=== PATIENT | male | born 1955 | race Caucasian/White ===

== ENCOUNTER 2019-10-03 12:57 | Inpatient (IN) | payer MEDICAID ==
[~2019-10-03] VITALS: Ht 175.3 cm; Wt 107.2 kg
[2019-10-03 14:18] LABS: BG BASE EXCESS 1.5 mmol/L (-2.0-2.0); BG CARBOXYHEMOGLOBIN 0.5 % (0.5-1.5); BG DEOXYHEMOGLOBIN 10.2 % (0.0-5.0); BG FRACTION INSPIRED OXYGEN 100; BG HCO3 ACT 22.1 mmol/L (22.0-26.0); BG METHEMOGLOBIN 0.2 % (0.0-1.5); BG OXYGEN SATURATION 89.7 % (92.0-98.5); BG OXYHEMOGLOBIN 89.1 % (94.0-97.0); BG PCO2 25.5 mmHg (35.0-45.0); BG PH 7.555 (7.350-7.450); BG PO2 53.3 mmHg (75.0-100.0); BG SAMPLE SITE RIGHT RADIAL; BG TOTAL HEMOGLOBIN 15.3 g/dL (12.0-18.0); BG VENT MODE MASK - NRB
[2019-10-03 14:52] LABS: HEMATOCRIT. 43.7 % (42.0-52.0); HEMOGLOBIN. 15.5 g/dL (14.0-18.0); MEAN CORPUSCULAR HEMOGLOBIN 30.8 pg (28.0-32.0); MEAN CORPUSCULAR VOLUME 86.6 fL (80.0-94.0); MEAN PLATELET VOLUME 8.9 fl (7.4-10.4); PLATELET 204 x1000/uL (130-400); RED BLOOD CELL COUNT 5.05 mill/uL (4.7-6.1); RED CELL DISTRIBUTION WIDTH 13.2 % (11.6-14.6)
[2019-10-03 15:02] LABS: PROTHROMBIN TIME 10.7 sec (9.6-11.0)
[2019-10-03 15:08] LABS: CHLORIDE 78 mEq/L (98-107)
[2019-10-03] MEDS ORDERED: FENTANYL CITRATE/PF 1,000 MCG in SODIUM CHLORIDE 0.9% 80 ML IV STA (15:17)
[2019-10-03 15:27] LABS: PLATELET ESTIMATE NORMAL
[2019-10-03] MEDS ORDERED: SUCCINYLCHOLINE CHLORIDE 200MG/10ML IV ONE ×2 (15:30→15:43)
[2019-10-03] MEDS ORDERED: ETOMIDATE 2MG/ML 10ML VIAL IV ONE ×2 (15:30→15:43)
[2019-10-03] MEDS ORDERED: FENTANYL CITRATE/PF 50MCG/ML 2ML VIAL IV ONE (15:30)
[2019-10-03] MEDS ORDERED: MIDAZOLAM HCL 50 MG in DEXTROSE 5% WATER 40 ML IV ONE ×2 (15:30→21:00)
[2019-10-03] MEDS ORDERED: POTASSIUM CHLORIDE INJ 40 MEQ in DEXT 5% WATER 500 ML IV ONE (15:30)
[2019-10-03] MEDS ORDERED: FENTANYL CITRATE/PF 1,000 MCG in SODIUM CHLORIDE 0.9% 80 ML IV PRN (15:30)
[2019-10-03] MEDS ORDERED: SODIUM CHLORIDE 0.9% 10ML VIAL ONE (15:43)
[2019-10-03] MEDS ORDERED: LORAZEPAM 2MG/ML CPJ ONE (16:03)
[2019-10-03] MEDS ORDERED: PROPOFOL 10MG/ML 100ML 100 ML IV ONE (16:30)
[2019-10-03 17:02] LABS: CLARITY URINE CLEAR (CLEAR); COLOR URINE YELLOW (YELLOW); KETONES URINE NEGATIVE (NEGATIVE); LEUKOCYTE ESTERASE URINE NEGATIVE (NEGATIVE); NITRITE URINE NEGATIVE (NEGATIVE); OCCULT BLOOD URINE NEGATIVE (NEGATIVE); PROTEIN URINE 2+ (NEGATIVE); SPECIFIC GRAVITY URINE 1.019 (1.005-1.030)
[2019-10-03 17:17] LABS: BG BASE EXCESS 0.7 mmol/L (-2.0-2.0); BG CARBOXYHEMOGLOBIN 0.2 % (0.5-1.5); BG DEOXYHEMOGLOBIN 2.4 % (0.0-5.0); BG FRACTION INSPIRED OXYGEN 100; BG HCO3 ACT 23.1 mmol/L (22.0-26.0); BG METHEMOGLOBIN 0.3 % (0.0-1.5); BG OXYGEN SATURATION 97.6 % (92.0-98.5); BG OXYHEMOGLOBIN 97.1 % (94.0-97.0); BG PO2 96.5 mmHg (75.0-100.0); BG SAMPLE SITE RIGHT RADIAL; BG TIDAL VOLUME(mL) 550 mL; BG TOTAL HEMOGLOBIN 14.5 g/dL (12.0-18.0); BG VENT MODE VENT - A/C; BG VENT RATE 16 set
[2019-10-03] MEDS ORDERED: ACETAMINOPHEN 325MG TABLET PO PRN (17:45)
[2019-10-03] MEDS ORDERED: MORPHINE SULFATE 2 MG/ML CPJ (NOT FOR IM USE) IV PRN (17:45)
[2019-10-03] MEDS ORDERED: ONDANSETRON HCL 4MG/2ML INJ IV PRN (17:45)
[2019-10-03] MEDS ORDERED: PANTOPRAZOLE SODIUM 40 MG/VIAL IV SCH (17:45)
[2019-10-03] MEDS ORDERED: GUAIFENESIN 200MG/10ML SUGAR FREE UDC PO PRN (17:45)
[2019-10-03] MEDS ORDERED: PROPOFOL 10MG/ML 100ML 100 ML IV PRN (18:00)
[2019-10-03] MEDS ORDERED: NOREPINEPHRINE 16 MG in DEXT 5% WATER 234 ML IV PRN (18:00)
[2019-10-03] MEDS ORDERED: IPRATROPIUM/ALBUTEROL 0.5-3(2.5)MG/3ML NEB HHN PRN (18:00)
[2019-10-03] MEDS ORDERED: PHENYLEPHRINE 40 MG in DEXT 5% WATER 246 ML IV PRN ×2 (18:00→18:30)
[2019-10-03] MEDS: AZITHROMYCIN 500 MG in DEXT 5% WATER 250 ML IV SCH (19:00)
[2019-10-03] MEDS ORDERED: CEFTRIAXONE 1 G PREMIX 50 ML IV SCH (19:30)
[2019-10-03] MEDS ORDERED: MIDAZOLAM HCL 50 MG in DEXTROSE 5% WATER 40 ML IV PRN (21:00)
[2019-10-03] MEDS ORDERED: KCL 10MEQ/50ML PREMIX 50 ML IV ONE (22:00)
[2019-10-04] VITALS (7 sets, daily range): BP systolic 105–126; BP diastolic 51–76
[2019-10-04] MEDS ORDERED: NOREPINEPHRINE 16 MG in DEXT 5% WATER 234 ML IV PRN ×2 (00:30→20:15)
[2019-10-04] MEDS: DEXT 5%/0.45% NACL KCL 10MEQ/L 1,000 ML IV SCH ×2 (03:29→08:50)
[2019-10-04 05:16] LABS: BASOPHILS % 0.4 % (0.0-2.0); HEMATOCRIT. 44.1 % (42.0-52.0); HEMOGLOBIN. 15.5 g/dL (14.0-18.0); MEAN CORPUSCULAR HEMOGLOBIN 30.8 pg (28.0-32.0); MEAN CORPUSCULAR VOLUME 87.5 fL (80.0-94.0); MONOCYTES % 12.7 % (2.0-8.0); NEUTROPHILS % 63.9 % (40.0-76.0); PLATELET 242 x1000/uL (130-400); RED BLOOD CELL COUNT 5.04 mill/uL (4.7-6.1); RED CELL DISTRIBUTION WIDTH 13.5 % (11.6-14.6)
[2019-10-04 05:23] LABS: CHLORIDE 83 mEq/L (98-107)
[2019-10-04 05:30] LABS: LDL CHOLESTEROL 26 mg/dL (5-100)
[2019-10-04 05:31] LABS: HDL CHOLESTEROL 29 mg/dL (40-59)
[2019-10-04 08:54] LABS: BG BASE EXCESS -2.6 mmol/L (-2.0-2.0); BG CARBOXYHEMOGLOBIN 0.3 % (0.5-1.5); BG FRACTION INSPIRED OXYGEN 100; BG HCO3 ACT 19.7 mmol/L (22.0-26.0); BG METHEMOGLOBIN 0.3 % (0.0-1.5); BG OXYHEMOGLOBIN 92.4 % (94.0-97.0); BG PCO2 28.6 mmHg (35.0-45.0); BG PH 7.457 (7.350-7.450); BG PO2 64.1 mmHg (75.0-100.0); BG SAMPLE SITE RIGHT BRACHIAL; BG TIDAL VOLUME(mL) 500 mL; BG VENT MODE VENT - A/C; BG VENT RATE 16 set
[2019-10-04] MEDS ORDERED: AZITHROMYCIN 500 MG in DEXT 5% WATER 250 ML IV SCH ×2 (09:00→18:15)
[2019-10-04] MEDS: FAMOTIDINE 20MG/2ML VIAL IV SCH (09:00)
[2019-10-04] MEDS ORDERED: FENTANYL CITRATE/PF 1,000 MCG in SODIUM CHLORIDE 0.9% 80 ML IV PRN (10:15)
[2019-10-04] MEDS: MIDAZOLAM HCL 50 MG in DEXTROSE 5% WATER 40 ML IV PRN ×2 (10:54→18:46)
[2019-10-04] MEDS ORDERED: POTASSIUM CHLORIDE INJ 40 MEQ in DEXT 5% WATER 250 ML IV SCH (17:00)
[2019-10-04] MEDS: AZITHROMYCIN 500 MG in DEXT 5% WATER 250 ML IV SCH (17:45)
[2019-10-04] MEDS ORDERED: CEFTRIAXONE 1 G PREMIX 50 ML IV SCH (18:00)
[2019-10-04 20:16] LABS: BG BASE EXCESS -1.4 mmol/L (-2.0-2.0); BG DEOXYHEMOGLOBIN 10.8 % (0.0-5.0); BG FRACTION INSPIRED OXYGEN 100; BG HCO3 ACT 20.8 mmol/L (22.0-26.0); BG METHEMOGLOBIN 0.2 % (0.0-1.5); BG OXYGEN SATURATION 89.2 % (92.0-98.5); BG PCO2 29.2 mmHg (35.0-45.0); BG PH 7.471 (7.350-7.450); BG PO2 53.6 mmHg (75.0-100.0); BG SAMPLE SITE RIGHT RADIAL; BG TIDAL VOLUME(mL) 500 mL; BG TOTAL HEMOGLOBIN 16.3 g/dL (12.0-18.0); BG VENT MODE VENT - A/C; BG VENT RATE 16 set
[2019-10-04] MEDS ORDERED: SODIUM CHLORIDE 0.9% 1,000 ML IV SCH (20:30)
[2019-10-04 23:36] LABS: CHLORIDE 85 mEq/L (98-107)
[2019-10-05] VITALS (91 sets, daily range): BP systolic 73–188; BP diastolic 44–90
[2019-10-05] MEDS: DEXT 5%/0.45% NACL KCL 10MEQ/L 1,000 ML IV SCH (01:00)
[2019-10-05] MEDS: MIDAZOLAM HCL 100 MG in DEXT 5% WATER 80 ML IV PRN ×2 (01:50→12:40)
[2019-10-05 05:36] LABS: HEMATOCRIT. 47.7 % (42.0-52.0); HEMOGLOBIN. 16.9 g/dL (14.0-18.0); MEAN CORPUSCULAR VOLUME 87.5 fL (80.0-94.0); MEAN PLATELET VOLUME 9.1 fl (7.4-10.4); PLATELET 288 x1000/uL (130-400); RED BLOOD CELL COUNT 5.45 mill/uL (4.7-6.1); RED CELL DISTRIBUTION WIDTH 13.7 % (11.6-14.6)
[2019-10-05 05:39] LABS: CHLORIDE 84 mEq/L (98-107)
[2019-10-05] MEDS: FENTANYL CITRATE/PF 1,000 MCG in SODIUM CHLORIDE 0.9% 80 ML IV PRN ×2 (06:20→17:22)
[2019-10-05] MEDS: PHENYLEPHRINE 80 MG in DEXT 5% WATER 492 ML IV PRN ×2 (07:27→18:29)
[2019-10-05] MEDS: IPRATROPIUM/ALBUTEROL 0.5-3(2.5)MG/3ML NEB HHN SCH ×2 (08:28→15:28)
[2019-10-05 08:57] LABS: BG BASE EXCESS -2.7 mmol/L (-2.0-2.0); BG CARBOXYHEMOGLOBIN 0.3 % (0.5-1.5); BG DEOXYHEMOGLOBIN 3.8 % (0.0-5.0); BG FRACTION INSPIRED OXYGEN 100; BG HCO3 ACT 21.7 mmol/L (22.0-26.0); BG METHEMOGLOBIN 0.3 % (0.0-1.5); BG OXYGEN SATURATION 96.2 % (92.0-98.5); BG OXYHEMOGLOBIN 95.6 % (94.0-97.0); BG PCO2 36.7 mmHg (35.0-45.0); BG PH 7.389 (7.350-7.450); BG PO2 80.3 mmHg (75.0-100.0); BG SAMPLE SITE RIGHT BRACHIAL; BG TIDAL VOLUME(mL) 500 mL; BG VENT MODE VENT - A/C; BG VENT RATE 16 set
[2019-10-05] MEDS: FAMOTIDINE 20MG/2ML VIAL IV SCH (08:59)
[2019-10-05 09:27] LABS: ATYPICAL LYMPHOCYTES 1; PLATELET ESTIMATE NORMAL
[2019-10-05] MEDS: SODIUM CHLORIDE 0.9% 1,000 ML IV SCH (11:00)
[2019-10-05] MEDS ORDERED: POTASSIUM CHLORIDE INJ 40 MEQ in DEXT 5% WATER 250 ML IV SCH (13:00)
[2019-10-05] MEDS: HYDROXYCHLOROQUINE SULFATE 200MG TABLET PO SCH ×2 (13:20→17:55)
[2019-10-05 19:03] LABS: CHLORIDE 86 mEq/L (98-107)
[2019-10-05] MEDS: ENOXAPARIN 40MG/0.4ML SYR SUBCUT SCH ×2 (20:55→22:00)
[2019-10-05] MEDS: CEFTRIAXONE 1 G PREMIX 50 ML IV SCH (20:55)
[2019-10-05] MEDS: AZITHROMYCIN 500 MG in DEXT 5% WATER 250 ML IV SCH (20:56)
[2019-10-05] MEDS: METRONIDAZOLE 500MG TABLET PO SCH (22:02)
[2019-10-06] VITALS (93 sets, daily range): BP systolic 80–141; BP diastolic 30–88
[2019-10-06] MEDS: PHENYLEPHRINE 80 MG in DEXT 5% WATER 492 ML IV PRN ×3 (02:09→17:08)
[2019-10-06 05:43] LABS: HEMATOCRIT. 44.6 % (42.0-52.0); HEMOGLOBIN. 15.8 g/dL (14.0-18.0); MEAN CORPUSCULAR VOLUME 87.5 fL (80.0-94.0); MEAN PLATELET VOLUME 8.8 fl (7.4-10.4); PLATELET 283 x1000/uL (130-400); RED BLOOD CELL COUNT 5.09 mill/uL (4.7-6.1); RED CELL DISTRIBUTION WIDTH 14.1 % (11.6-14.6)
[2019-10-06] MEDS: SODIUM CHLORIDE 0.9% 1,000 ML IV SCH ×2 (07:16→11:12)
[2019-10-06 08:39] LABS: BG BASE EXCESS 0.9 mmol/L (-2.0-2.0); BG CARBOXYHEMOGLOBIN 0.5 % (0.5-1.5); BG HCO3 ACT 24.8 mmol/L (22.0-26.0); BG METHEMOGLOBIN 0.3 % (0.0-1.5); BG OXYHEMOGLOBIN 95.2 % (94.0-97.0); BG PCO2 37.7 mmHg (35.0-45.0); BG PH 7.436 (7.350-7.450); BG PO2 76.2 mmHg (75.0-100.0); BG SAMPLE SITE RIGHT RADIAL; BG TIDAL VOLUME(mL) 450 mL; BG TOTAL HEMOGLOBIN 16.1 g/dL (12.0-18.0); BG VENT MODE VENT - A/C; BG VENT RATE 18 set
[2019-10-06] MEDS: MIDAZOLAM HCL 100 MG in DEXT 5% WATER 80 ML IV PRN ×2 (08:43→21:14)
[2019-10-06] MEDS: IPRATROPIUM/ALBUTEROL 0.5-3(2.5)MG/3ML NEB HHN SCH ×2 (09:19→16:44)
[2019-10-06] MEDS: FAMOTIDINE 20MG/2ML VIAL IV SCH (09:29)
[2019-10-06] MEDS: METRONIDAZOLE 500MG TABLET PO SCH ×2 (09:29→19:52)
[2019-10-06] MEDS: ZINC SULFATE 220 MG ( 50 ) CAPSULE PO SCH (09:29)
[2019-10-06] MEDS: HYDROXYCHLOROQUINE SULFATE 200MG TABLET PO SCH ×2 (09:31→17:13)
[2019-10-06] MEDS: THIAMINE HCL 100MG TABLET PO SCH (09:32)
[2019-10-06] MEDS: FOLIC ACID 1MG TABLET PO SCH (09:33)
[2019-10-06 10:53] LABS: CHLORIDE 88 mEq/L (98-107)
[2019-10-06 14:18] LABS: PLATELET ESTIMATE NORMAL
[2019-10-06] MEDS: FENTANYL CITRATE/PF 1,000 MCG in SODIUM CHLORIDE 0.9% 80 ML IV PRN (14:45)
[2019-10-06] MEDS: CEFTRIAXONE 1 G PREMIX 50 ML IV SCH (19:51)
[2019-10-06] MEDS: AZITHROMYCIN 500 MG in DEXT 5% WATER 250 ML IV SCH (19:51)
[2019-10-06] MEDS: ENOXAPARIN 40MG/0.4ML SYR SUBCUT SCH (19:52)
[2019-10-06] MEDS ORDERED: VANCOMYCIN 1,500 MG in DEXT 5% WATER 250 ML IV SCH (20:00)
[2019-10-07] VITALS (88 sets, daily range): BP systolic 89–151; BP diastolic 47–79
[2019-10-07] MEDS: IPRATROPIUM/ALBUTEROL 0.5-3(2.5)MG/3ML NEB HHN SCH ×2 (02:10→08:24)
[2019-10-07 05:40] LABS: HEMATOCRIT. 44.1 % (42.0-52.0); HEMOGLOBIN. 15.3 g/dL (14.0-18.0); MEAN CORPUSCULAR HEMOGLOBIN 30.7 pg (28.0-32.0); MEAN CORPUSCULAR VOLUME 88.9 fL (80.0-94.0); MEAN PLATELET VOLUME 8.4 fl (7.4-10.4); PLATELET 317 x1000/uL (130-400); RED BLOOD CELL COUNT 4.97 mill/uL (4.7-6.1); RED CELL DISTRIBUTION WIDTH 13.8 % (11.6-14.6)
[2019-10-07 05:54] LABS: CHLORIDE 92 mEq/L (98-107)
[2019-10-07] MEDS: FAMOTIDINE 20MG/2ML VIAL IV SCH (08:35)
[2019-10-07] MEDS: VANCOMYCIN 1,000 MG in DEXT 5% WATER 250 ML IV SCH ×2 (08:35→22:57)
[2019-10-07] MEDS: ZINC SULFATE 220 MG ( 50 ) CAPSULE PO SCH (08:36)
[2019-10-07] MEDS: THIAMINE HCL 100MG TABLET PO SCH (08:36)
[2019-10-07] MEDS: FOLIC ACID 1MG TABLET PO SCH (08:36)
[2019-10-07] MEDS: METRONIDAZOLE 500MG TABLET PO SCH ×2 (08:36→21:54)
[2019-10-07] MEDS: HYDROXYCHLOROQUINE SULFATE 200MG TABLET PO SCH ×2 (08:36→16:25)
[2019-10-07 08:43] LABS: PLATELET ESTIMATE NORMAL
[2019-10-07 10:17] LABS: BG BASE EXCESS -2.9 mmol/L (-2.0-2.0); BG CARBOXYHEMOGLOBIN 0.3 % (0.5-1.5); BG DEOXYHEMOGLOBIN 6.2 % (0.0-5.0); BG FRACTION INSPIRED OXYGEN 90; BG HCO3 ACT 21.7 mmol/L (22.0-26.0); BG METHEMOGLOBIN 0.3 % (0.0-1.5); BG OXYGEN SATURATION 93.8 % (92.0-98.5); BG OXYHEMOGLOBIN 93.2 % (94.0-97.0); BG PCO2 37.2 mmHg (35.0-45.0); BG PH 7.383 (7.350-7.450); BG PO2 66.7 mmHg (75.0-100.0); BG SAMPLE SITE RIGHT RADIAL; BG TIDAL VOLUME(mL) 450 mL; BG TOTAL HEMOGLOBIN 14.9 g/dL (12.0-18.0); BG VENT MODE VENT - PRVC; BG VENT RATE 18 set
[2019-10-07] MEDS: METOCLOPRAMIDE HCL 10MG/2ML VIAL IV SCH ×2 (16:23→23:41)
[2019-10-07] MEDS: PROPOFOL 10MG/ML 100ML 100 ML IV PRN ×2 (16:25→20:28)
[2019-10-07] MEDS: FENTANYL CITRATE/PF 1,000 MCG in SODIUM CHLORIDE 0.9% 80 ML IV PRN (18:56)
[2019-10-07] MEDS: MIDAZOLAM HCL 100 MG in DEXT 5% WATER 80 ML IV PRN (18:56)
[2019-10-07] MEDS: AZITHROMYCIN 500 MG in DEXT 5% WATER 250 ML IV SCH (20:44)
[2019-10-07] MEDS: ENOXAPARIN 30MG/0.3ML SYR SUBCUT SCH (21:29)
[2019-10-07] MEDS: CEFTRIAXONE 1 G PREMIX 50 ML IV SCH (22:02)
[2019-10-07] MEDS: PHENYLEPHRINE 80 MG in DEXT 5% WATER 492 ML IV PRN (23:35)
[2019-10-07] MEDS: SODIUM CHLORIDE 0.9% 1,000 ML IV SCH (23:49)
[2019-10-08] VITALS (91 sets, daily range): BP systolic 67–122; BP diastolic 44–72
[2019-10-08] MEDS: PROPOFOL 10MG/ML 100ML 100 ML IV PRN ×5 (00:31→20:00)
[2019-10-08] MEDS: FENTANYL CITRATE/PF 1,000 MCG in SODIUM CHLORIDE 0.9% 80 ML IV PRN ×2 (04:50→16:16)
[2019-10-08] MEDS: MIDAZOLAM HCL 100 MG in DEXT 5% WATER 80 ML IV PRN ×2 (05:33→16:16)
[2019-10-08 05:41] LABS: HEMATOCRIT. 39.1 % (42.0-52.0); HEMOGLOBIN. 13.4 g/dL (14.0-18.0); MEAN CORPUSCULAR VOLUME 90.5 fL (80.0-94.0); MEAN PLATELET VOLUME 8.5 fl (7.4-10.4); PLATELET 204 x1000/uL (130-400); RED BLOOD CELL COUNT 4.32 mill/uL (4.7-6.1); RED CELL DISTRIBUTION WIDTH 14.4 % (11.6-14.6)
[2019-10-08] MEDS: METOCLOPRAMIDE HCL 10MG/2ML VIAL IV SCH ×4 (05:46→23:59)
[2019-10-08] MEDS: PHENYLEPHRINE 80 MG in DEXT 5% WATER 492 ML IV PRN ×3 (06:19→22:38)
[2019-10-08 06:36] LABS: CHLORIDE 91 mEq/L (98-107)
[2019-10-08] MEDS ORDERED: LIDOCAINE HCL 1% 20ML VIAL (Pyxis) INJ ONE (07:33)
[2019-10-08] MEDS: FOLIC ACID 1MG TABLET PO SCH (08:59)
[2019-10-08] MEDS: HYDROXYCHLOROQUINE SULFATE 200MG TABLET PO SCH ×2 (08:59→17:45)
[2019-10-08] MEDS: FAMOTIDINE 20MG/2ML VIAL IV SCH (08:59)
[2019-10-08] MEDS: METRONIDAZOLE 500MG TABLET PO SCH ×2 (08:59→21:13)
[2019-10-08] MEDS: ENOXAPARIN 30MG/0.3ML SYR SUBCUT SCH ×2 (08:59→21:17)
[2019-10-08] MEDS: VANCOMYCIN 1,000 MG in DEXT 5% WATER 250 ML IV SCH (09:02)
[2019-10-08] MEDS: THIAMINE HCL 100MG TABLET PO SCH (09:02)
[2019-10-08 09:33] LABS: PLATELET ESTIMATE NORMAL
[2019-10-08 09:44] LABS: BG BASE EXCESS -1.5 mmol/L (-2.0-2.0); BG CARBOXYHEMOGLOBIN 0.2 % (0.5-1.5); BG DEOXYHEMOGLOBIN 3.6 % (0.0-5.0); BG FRACTION INSPIRED OXYGEN 90; BG HCO3 ACT 26.3 mmol/L (22.0-26.0); BG METHEMOGLOBIN 0.3 % (0.0-1.5); BG OXYGEN SATURATION 96.4 % (92.0-98.5); BG OXYHEMOGLOBIN 95.9 % (94.0-97.0); BG PCO2 56.8 mmHg (35.0-45.0); BG PH 7.284 (7.350-7.450); BG PO2 92.4 mmHg (75.0-100.0); BG SAMPLE SITE RIGHT RADIAL; BG TIDAL VOLUME(mL) 450 mL; BG TOTAL HEMOGLOBIN 15.2 g/dL (12.0-18.0); BG VENT MODE VENT - PRVC; BG VENT RATE 18 set
[2019-10-08] MEDS: ZINC SULFATE 220 MG ( 50 ) CAPSULE PO SCH (10:13)
[2019-10-08] MEDS: VANCOMYCIN 1250MG in DEXTROSE 5% WATER 250ML IV SCH ×2 (16:00→22:39)
[2019-10-08] MEDS: SODIUM CHLORIDE 0.9% 1,000 ML IV SCH (19:00)
[2019-10-08] MEDS: CEFTRIAXONE 1 G PREMIX 50 ML IV SCH (20:22)
[2019-10-09] VITALS (94 sets, daily range): BP systolic 68–133; BP diastolic 42–72
[2019-10-09] MEDS: PROPOFOL 10MG/ML 100ML 100 ML IV PRN ×6 (00:47→22:15)
[2019-10-09] MEDS: MIDAZOLAM HCL 100 MG in DEXT 5% WATER 80 ML IV PRN ×2 (01:06→12:26)
[2019-10-09] MEDS: FENTANYL CITRATE/PF 1,000 MCG in SODIUM CHLORIDE 0.9% 80 ML IV PRN ×2 (01:11→12:53)
[2019-10-09] MEDS: PHENYLEPHRINE 80 MG in DEXT 5% WATER 492 ML IV PRN ×3 (05:52→22:21)
[2019-10-09] MEDS: METOCLOPRAMIDE HCL 10MG/2ML VIAL IV SCH ×3 (06:11→17:36)
[2019-10-09] MEDS: VANCOMYCIN 1250MG in DEXTROSE 5% WATER 250ML IV SCH ×2 (06:13→13:26)
[2019-10-09 08:17] LABS: BG BASE EXCESS -10.5 mmol/L (-2.0-2.0); BG CARBOXYHEMOGLOBIN 0.3 % (0.5-1.5); BG HCO3 ACT 17.6 mmol/L (22.0-26.0); BG METHEMOGLOBIN 0.3 % (0.0-1.5); BG OXYHEMOGLOBIN 94.4 % (94.0-97.0); BG PCO2 47.1 mmHg (35.0-45.0); BG PO2 77.9 mmHg (75.0-100.0); BG SAMPLE SITE RIGHT RADIAL; BG TIDAL VOLUME(mL) 450 mL; BG TOTAL HEMOGLOBIN 13.8 g/dL (12.0-18.0); BG VENT MODE VENT - A/C; BG VENT RATE 24 set
[2019-10-09] MEDS ORDERED: SODIUM BICARBONATE 8.4% 1 MEQ/ML 50ML SYR IV NR (09:00)
[2019-10-09] MEDS: THIAMINE HCL 100MG TABLET PO SCH (09:03)
[2019-10-09] MEDS: HYDROXYCHLOROQUINE SULFATE 200MG TABLET PO SCH (09:03)
[2019-10-09] MEDS: FAMOTIDINE 20MG/2ML VIAL IV SCH (09:03)
[2019-10-09] MEDS: METRONIDAZOLE 500MG TABLET PO SCH (09:03)
[2019-10-09] MEDS: ZINC SULFATE 220 MG ( 50 ) CAPSULE PO SCH (09:03)
[2019-10-09] MEDS: ENOXAPARIN 30MG/0.3ML SYR SUBCUT SCH ×2 (09:04→21:15)
[2019-10-09 13:02] LABS: HEMATOCRIT. 40.6 % (42.0-52.0); HEMOGLOBIN. 13.8 g/dL (14.0-18.0); MEAN CORPUSCULAR HEMOGLOBIN 30.6 pg (28.0-32.0); MEAN PLATELET VOLUME 8.7 fl (7.4-10.4); PLATELET 218 x1000/uL (130-400); RED BLOOD CELL COUNT 4.51 mill/uL (4.7-6.1); RED CELL DISTRIBUTION WIDTH 14.4 % (11.6-14.6)
[2019-10-09 13:09] LABS: CHLORIDE 86 mEq/L (98-107)
[2019-10-09] MEDS ORDERED: METHYLPREDNISOLONE SOD SUCC 125 MG/2 ML VIAL IV SCH (13:45)
[2019-10-09 13:52] LABS: PLATELET ESTIMATE NORMAL
[2019-10-09 14:23] LABS: VANCOMYCIN TROUGH > 50.0 ug/mL (5.0-10.0)
[2019-10-09] MEDS: MEROPENEM 500 MG in SODIUM CHLORIDE 0.9% 50 ML IV SCH ×2 (14:46→23:18)
[2019-10-09] MEDS: SODIUM CHLORIDE 0.9% 1,000 ML IV SCH (14:46)
[2019-10-10] VITALS (96 sets, daily range): BP systolic 64–145; BP diastolic 38–82
[2019-10-10] MEDS: METOCLOPRAMIDE HCL 10MG/2ML VIAL IV SCH ×4 (01:29→17:23)
[2019-10-10] MEDS: FENTANYL CITRATE/PF 1,000 MCG in SODIUM CHLORIDE 0.9% 80 ML IV PRN ×2 (02:25→04:40)
[2019-10-10] MEDS: MIDAZOLAM HCL 100 MG in DEXT 5% WATER 80 ML IV PRN ×3 (02:26→14:02)
[2019-10-10] MEDS ORDERED: FENTANYL CITRATE/PF 500 MCG in SODIUM CHLORIDE 0.9% 40 ML IV PRN (04:15)
[2019-10-10 05:37] LABS: CHLORIDE 84 mEq/L (98-107)
[2019-10-10 05:38] LABS: HEMATOCRIT. 39.6 % (42.0-52.0); HEMOGLOBIN. 13.5 g/dL (14.0-18.0); MEAN CORPUSCULAR VOLUME 90.9 fL (80.0-94.0); MEAN PLATELET VOLUME 9.3 fl (7.4-10.4); PLATELET 231 x1000/uL (130-400); RED BLOOD CELL COUNT 4.35 mill/uL (4.7-6.1); RED CELL DISTRIBUTION WIDTH 14.6 % (11.6-14.6)
[2019-10-10] MEDS: PROPOFOL 10MG/ML 100ML 100 ML IV PRN ×3 (05:41→21:34)
[2019-10-10] MEDS: PHENYLEPHRINE 80 MG in DEXT 5% WATER 492 ML IV PRN ×3 (06:28→21:56)
[2019-10-10 07:57] LABS: PLATELET ESTIMATE NORMAL
[2019-10-10 09:25] LABS: BG BASE EXCESS -12.4 mmol/L (-2.0-2.0); BG CARBOXYHEMOGLOBIN 0.3 % (0.5-1.5); BG DEOXYHEMOGLOBIN 2.6 % (0.0-5.0); BG FRACTION INSPIRED OXYGEN 100; BG HCO3 ACT 18.6 mmol/L (22.0-26.0); BG METHEMOGLOBIN 0.2 % (0.0-1.5); BG OXYGEN SATURATION 97.4 % (92.0-98.5); BG OXYHEMOGLOBIN 96.9 % (94.0-97.0); BG PCO2 65.7 mmHg (35.0-45.0); BG PH 7.069 (7.350-7.450); BG PO2 106.1 mmHg (75.0-100.0); BG SAMPLE SITE RIGHT RADIAL; BG TIDAL VOLUME(mL) 450 mL; BG TOTAL HEMOGLOBIN 14.3 g/dL (12.0-18.0); BG VENT MODE VENT - A/C PRVC; BG VENT RATE 28 set
[2019-10-10] MEDS: ENOXAPARIN 30MG/0.3ML SYR SUBCUT SCH (09:26)
[2019-10-10] MEDS: MEROPENEM 500 MG in SODIUM CHLORIDE 0.9% 50 ML IV SCH ×2 (09:26→21:11)
[2019-10-10] MEDS: FAMOTIDINE 20MG/2ML VIAL IV SCH (09:27)
[2019-10-10] MEDS: THIAMINE HCL 100MG TABLET PO SCH (09:27)
[2019-10-10] MEDS: ZINC SULFATE 220 MG ( 50 ) CAPSULE PO SCH (09:27)
[2019-10-10] MEDS ORDERED: SODIUM POLYSTYRENE SULFONATE 15 G/60 ML BOT PO SCH (11:30)
[2019-10-10] MEDS ORDERED: SODIUM CHLORIDE 3% 200 ML IV SCH (12:00)
[2019-10-10] MEDS: METHYLPREDNISOLONE SOD SUCC 40 MG/ML VIAL IV SCH ×2 (12:29→20:59)
[2019-10-10] MEDS: SODIUM CHLORIDE 0.9% 1,000 ML IV SCH (12:30)
[2019-10-10 13:46] LABS: BG BASE EXCESS -9.2 mmol/L (-2.0-2.0); BG CARBOXYHEMOGLOBIN 0.3 % (0.5-1.5); BG DEOXYHEMOGLOBIN 1.1 % (0.0-5.0); BG FRACTION INSPIRED OXYGEN 90; BG HCO3 ACT 17.5 mmol/L (22.0-26.0); BG METHEMOGLOBIN 0.4 % (0.0-1.5); BG OXYGEN SATURATION 98.9 % (92.0-98.5); BG OXYHEMOGLOBIN 98.2 % (94.0-97.0); BG PCO2 40.8 mmHg (35.0-45.0); BG PH 7.251 (7.350-7.450); BG PO2 156.8 mmHg (75.0-100.0); BG SAMPLE SITE RIGHT RADIAL; BG TIDAL VOLUME(mL) 550 mL; BG TOTAL HEMOGLOBIN 14.3 g/dL (12.0-18.0); BG VENT MODE VENT - A/C PRVC; BG VENT RATE 30 set
[2019-10-11] VITALS (92 sets, daily range): BP systolic 80–134; BP diastolic 44–78
[2019-10-11] MEDS: METOCLOPRAMIDE HCL 10MG/2ML VIAL IV SCH ×4 (00:40→18:00)
[2019-10-11 05:53] LABS: HEMATOCRIT. 38.8 % (42.0-52.0); HEMOGLOBIN. 13.2 g/dL (14.0-18.0); MEAN CORPUSCULAR HEMOGLOBIN 30.4 pg (28.0-32.0); MEAN CORPUSCULAR VOLUME 89.7 fL (80.0-94.0); MEAN PLATELET VOLUME 8.5 fl (7.4-10.4); PLATELET 283 x1000/uL (130-400); RED BLOOD CELL COUNT 4.32 mill/uL (4.7-6.1); RED CELL DISTRIBUTION WIDTH 14.5 % (11.6-14.6)
[2019-10-11] MEDS: PROPOFOL 10MG/ML 100ML 100 ML IV PRN (06:26)
[2019-10-11] MEDS: SODIUM CHLORIDE 0.9% 1,000 ML IV SCH (06:36)
[2019-10-11] MEDS: PHENYLEPHRINE 80 MG in DEXT 5% WATER 492 ML IV PRN ×2 (06:43→16:21)
[2019-10-11 07:33] LABS: PLATELET ESTIMATE NORMAL
[2019-10-11] MEDS: MIDAZOLAM HCL 100 MG in DEXT 5% WATER 80 ML IV PRN (08:16)
[2019-10-11] MEDS: CITRIC ACID/SODIUM CITRATE SOLN 30ML UDC PO SCH ×3 (08:55→16:50)
[2019-10-11] MEDS: ZINC SULFATE 220 MG ( 50 ) CAPSULE PO SCH (08:55)
[2019-10-11] MEDS: THIAMINE HCL 100MG TABLET PO SCH (08:55)
[2019-10-11] MEDS: MEROPENEM 500 MG in SODIUM CHLORIDE 0.9% 50 ML IV SCH ×2 (08:55→21:58)
[2019-10-11] MEDS: METHYLPREDNISOLONE SOD SUCC 40 MG/ML VIAL IV SCH ×2 (08:55→21:58)
[2019-10-11] MEDS: FAMOTIDINE 20MG/2ML VIAL IV SCH (08:55)
[2019-10-11] MEDS: ENOXAPARIN 40MG/0.4ML SYR SUBCUT SCH (08:56)
[2019-10-11] MEDS ORDERED: SODIUM POLYSTYRENE SULFONATE 15 G/60 ML BOT PO SCH (09:00)
[2019-10-11 10:15] LABS: BG CARBOXYHEMOGLOBIN 0.3 % (0.5-1.5); BG DEOXYHEMOGLOBIN 5.1 % (0.0-5.0); BG FRACTION INSPIRED OXYGEN 80; BG HCO3 ACT 18.2 mmol/L (22.0-26.0); BG METHEMOGLOBIN 0.4 % (0.0-1.5); BG OXYGEN SATURATION 94.9 % (92.0-98.5); BG OXYHEMOGLOBIN 94.2 % (94.0-97.0); BG PCO2 43.9 mmHg (35.0-45.0); BG PH 7.235 (7.350-7.450); BG PO2 79.9 mmHg (75.0-100.0); BG SAMPLE SITE RIGHT RADIAL; BG TIDAL VOLUME(mL) 550 mL; BG TOTAL HEMOGLOBIN 13.3 g/dL (12.0-18.0); BG VENT MODE VENT - PCV; BG VENT RATE 30 set
[2019-10-11] MEDS: FENTANYL CITRATE/PF 1,000 MCG in SODIUM CHLORIDE 0.9% 80 ML IV PRN (14:27)
[2019-10-12] VITALS (96 sets, daily range): BP systolic 78–141; BP diastolic 43–90
[2019-10-12] MEDS: METOCLOPRAMIDE HCL 10MG/2ML VIAL IV SCH ×5 (00:01→23:45)
[2019-10-12] MEDS: PHENYLEPHRINE 80 MG in DEXT 5% WATER 492 ML IV PRN ×3 (02:10→23:07)
[2019-10-12] MEDS: SODIUM CHLORIDE 0.9% 1,000 ML IV SCH ×2 (05:14→22:24)
[2019-10-12] MEDS: MIDAZOLAM HCL 100 MG in DEXT 5% WATER 80 ML IV PRN ×2 (07:39→23:25)
[2019-10-12] MEDS: FENTANYL CITRATE/PF 1,000 MCG in SODIUM CHLORIDE 0.9% 80 ML IV PRN ×2 (07:39→22:48)
[2019-10-12] MEDS: MEROPENEM 500 MG in SODIUM CHLORIDE 0.9% 50 ML IV SCH ×2 (08:19→21:28)
[2019-10-12] MEDS: CITRIC ACID/SODIUM CITRATE SOLN 30ML UDC PO SCH ×3 (08:19→17:15)
[2019-10-12] MEDS: THIAMINE HCL 100MG TABLET PO SCH (08:20)
[2019-10-12] MEDS: METHYLPREDNISOLONE SOD SUCC 40 MG/ML VIAL IV SCH ×2 (08:20→21:27)
[2019-10-12] MEDS: ENOXAPARIN 40MG/0.4ML SYR SUBCUT SCH (08:20)
[2019-10-12] MEDS: ZINC SULFATE 220 MG ( 50 ) CAPSULE PO SCH (08:20)
[2019-10-12] MEDS: FAMOTIDINE 20MG/2ML VIAL IV SCH (08:20)
[2019-10-12 08:25] LABS: BG BASE EXCESS -10.5 mmol/L (-2.0-2.0); BG CARBOXYHEMOGLOBIN 0.3 % (0.5-1.5); BG DEOXYHEMOGLOBIN 3.1 % (0.0-5.0); BG HCO3 ACT 16.9 mmol/L (22.0-26.0); BG METHEMOGLOBIN 0.4 % (0.0-1.5); BG OXYGEN SATURATION 96.9 % (92.0-98.5); BG OXYHEMOGLOBIN 96.2 % (94.0-97.0); BG PCO2 42.7 mmHg (35.0-45.0); BG PH 7.215 (7.350-7.450); BG PO2 102.3 mmHg (75.0-100.0); BG SAMPLE SITE RIGHT RADIAL; BG TIDAL VOLUME(mL) 550 mL; BG TOTAL HEMOGLOBIN 13.3 g/dL (12.0-18.0); BG VENT MODE VENT - A/C; BG VENT RATE 30 set
[2019-10-12] MEDS ORDERED: SODIUM BICARBONATE 8.4% 1 MEQ/ML 50ML SYR IV NR ×2 (09:00→23:30)
[2019-10-12] MEDS ORDERED: MIDAZOLAM HCL 100 MG in DEXT 5% WATER 80 ML IV PRN (16:45)
[2019-10-12 23:01] LABS: BG BASE EXCESS -11.6 mmol/L (-2.0-2.0); BG CARBOXYHEMOGLOBIN 0.3 % (0.5-1.5); BG FRACTION INSPIRED OXYGEN 100; BG HCO3 ACT 15.5 mmol/L (22.0-26.0); BG METHEMOGLOBIN 0.5 % (0.0-1.5); BG OXYHEMOGLOBIN 95.2 % (94.0-97.0); BG PCO2 39.1 mmHg (35.0-45.0); BG PH 7.215 (7.350-7.450); BG PO2 94.1 mmHg (75.0-100.0); BG SAMPLE SITE RIGHT RADIAL; BG TIDAL VOLUME(mL) 541 mL; BG TOTAL HEMOGLOBIN 14.8 g/dL (12.0-18.0); BG VENT MODE VENT - PCV; BG VENT RATE 30 set
[2019-10-13] VITALS (89 sets, daily range): BP systolic 110–139; BP diastolic 52–88
[2019-10-13] MEDS: METOCLOPRAMIDE HCL 10MG/2ML VIAL IV SCH ×3 (05:11→17:10)
[2019-10-13] MEDS: CITRIC ACID/SODIUM CITRATE SOLN 30ML UDC PO SCH ×3 (08:17→16:56)
[2019-10-13] MEDS: ZINC SULFATE 220 MG ( 50 ) CAPSULE PO SCH (08:17)
[2019-10-13] MEDS: ENOXAPARIN 40MG/0.4ML SYR SUBCUT SCH (08:17)
[2019-10-13] MEDS: THIAMINE HCL 100MG TABLET PO SCH (08:17)
[2019-10-13] MEDS: FAMOTIDINE 20MG/2ML VIAL IV SCH (08:17)
[2019-10-13] MEDS: MEROPENEM 500 MG in SODIUM CHLORIDE 0.9% 50 ML IV SCH ×2 (08:17→21:33)
[2019-10-13] MEDS: METHYLPREDNISOLONE SOD SUCC 40 MG/ML VIAL IV SCH ×2 (08:17→21:34)
[2019-10-13 08:21] LABS: BG BASE EXCESS -10.3 mmol/L (-2.0-2.0); BG CARBOXYHEMOGLOBIN 0.2 % (0.5-1.5); BG FRACTION INSPIRED OXYGEN 100; BG HCO3 ACT 18.4 mmol/L (22.0-26.0); BG METHEMOGLOBIN 0.5 % (0.0-1.5); BG OXYHEMOGLOBIN 95.3 % (94.0-97.0); BG PCO2 52.2 mmHg (35.0-45.0); BG PH 7.166 (7.350-7.450); BG PO2 96.4 mmHg (75.0-100.0); BG SAMPLE SITE RIGHT RADIAL; BG TOTAL HEMOGLOBIN 13.5 g/dL (12.0-18.0); BG VENT MODE VENT - PCV; BG VENT RATE 30 set
[2019-10-13] MEDS: PHENYLEPHRINE 80 MG in DEXT 5% WATER 492 ML IV PRN ×2 (09:07→18:54)
[2019-10-13] MEDS ORDERED: SODIUM BICARBONATE 8.4% 1 MEQ/ML 50ML SYR IV NR (10:26)
[2019-10-13] MEDS: FENTANYL CITRATE/PF 1,000 MCG in SODIUM CHLORIDE 0.9% 80 ML IV PRN (10:59)
[2019-10-13] MEDS ORDERED: SODIUM BICARBONATE 100 MEQ in DEXTROSE 5% WATER 1,000 ML IV SCH (11:30)
[2019-10-13] MEDS: MIDAZOLAM HCL 100 MG in DEXT 5% WATER 80 ML IV PRN (13:21)
[2019-10-13 15:41] LABS: BG BASE EXCESS -8.8 mmol/L (-2.0-2.0); BG CARBOXYHEMOGLOBIN 0.1 % (0.5-1.5); BG DEOXYHEMOGLOBIN 9.2 % (0.0-5.0); BG FRACTION INSPIRED OXYGEN 90; BG HCO3 ACT 19.9 mmol/L (22.0-26.0); BG METHEMOGLOBIN 0.2 % (0.0-1.5); BG OXYGEN SATURATION 90.8 % (92.0-98.5); BG OXYHEMOGLOBIN 90.5 % (94.0-97.0); BG PCO2 54.9 mmHg (35.0-45.0); BG PH 7.177 (7.350-7.450); BG PO2 67.8 mmHg (75.0-100.0); BG SAMPLE SITE RIGHT RADIAL; BG TOTAL HEMOGLOBIN 12.9 g/dL (12.0-18.0); BG VENT MODE VENT - PCV; BG VENT RATE 20 set
[2019-10-13] MEDS ORDERED: SODIUM BICARBONATE 8.4% 1 MEQ/ML 50ML SYR IV ONE (16:00)
[2019-10-14] VITALS (94 sets, daily range): BP systolic 76–140; BP diastolic 49–74
[2019-10-14] MEDS: METOCLOPRAMIDE HCL 10MG/2ML VIAL IV SCH ×4 (00:28→17:52)
[2019-10-14] MEDS: FENTANYL CITRATE/PF 1,000 MCG in SODIUM CHLORIDE 0.9% 80 ML IV PRN ×2 (00:30→14:41)
[2019-10-14] MEDS: PHENYLEPHRINE 80 MG in DEXT 5% WATER 492 ML IV PRN ×5 (00:40→07:52)
[2019-10-14] MEDS: MIDAZOLAM HCL 100 MG in DEXT 5% WATER 80 ML IV PRN ×2 (03:38→19:15)
[2019-10-14 05:38] LABS: HEMATOCRIT. 32.7 % (42.0-52.0); HEMOGLOBIN. 10.8 g/dL (14.0-18.0); MEAN CORPUSCULAR HEMOGLOBIN 30.4 pg (28.0-32.0); MEAN CORPUSCULAR VOLUME 91.6 fL (80.0-94.0); MEAN PLATELET VOLUME 8.3 fl (7.4-10.4); PLATELET 247 x1000/uL (130-400); RED BLOOD CELL COUNT 3.57 mill/uL (4.7-6.1); RED CELL DISTRIBUTION WIDTH 14.7 % (11.6-14.6)
[2019-10-14] MEDS ORDERED: SODIUM CHLORIDE 3% 250 ML IV ONE (07:00)
[2019-10-14] MEDS ORDERED: CALCIUM GLUCONATE 2,000 MG in DEXT 5% WATER 80 ML IV SCH (08:00)
[2019-10-14] MEDS ORDERED: SODIUM CHLORIDE 3% 250 ML IV SCH (09:00)
[2019-10-14] MEDS: SODIUM BICARBONATE 100 MEQ in DEXT 5%/0.9% NACL 1,000 ML IV SCH (09:10)
[2019-10-14] MEDS: MEROPENEM 500 MG in SODIUM CHLORIDE 0.9% 50 ML IV SCH ×2 (09:15→20:53)
[2019-10-14] MEDS: CITRIC ACID/SODIUM CITRATE SOLN 30ML UDC PO SCH (09:17)
[2019-10-14] MEDS: THIAMINE HCL 100MG TABLET PO SCH (09:18)
[2019-10-14] MEDS: FAMOTIDINE 20MG/2ML VIAL IV SCH (09:18)
[2019-10-14] MEDS: METHYLPREDNISOLONE SOD SUCC 40 MG/ML VIAL IV SCH ×2 (09:18→20:53)
[2019-10-14] MEDS: ZINC SULFATE 220 MG ( 50 ) CAPSULE PO SCH (09:18)
[2019-10-14] MEDS: ENOXAPARIN 40MG/0.4ML SYR SUBCUT SCH (09:19)
[2019-10-14 09:39] LABS: PLATELET ESTIMATE NORMAL
[2019-10-14] MEDS ORDERED: DEXTROSE 50% WATER 50ML SYRINGE IV SCH (12:00)
[2019-10-14] MEDS ORDERED: INSULIN REGULAR (HUMULIN R) 300UNITS/3ML IV SCH (12:15)
[2019-10-14 16:56] LABS: BG BASE EXCESS -7.2 mmol/L (-2.0-2.0); BG CARBOXYHEMOGLOBIN 0.2 % (0.5-1.5); BG DEOXYHEMOGLOBIN 10.5 % (0.0-5.0); BG FRACTION INSPIRED OXYGEN 100; BG HCO3 ACT 21.9 mmol/L (22.0-26.0); BG METHEMOGLOBIN 0.4 % (0.0-1.5); BG OXYGEN SATURATION 89.4 % (92.0-98.5); BG OXYHEMOGLOBIN 88.9 % (94.0-97.0); BG PH 7.173 (7.350-7.450); BG PO2 66.4 mmHg (75.0-100.0); BG SAMPLE SITE RIGHT RADIAL; BG TOTAL HEMOGLOBIN 12.3 g/dL (12.0-18.0); BG VENT MODE VENT - PCV; BG VENT RATE 30 set
[2019-10-14] MEDS ORDERED: SODIUM BICARBONATE 8.4% 1 MEQ/ML 50ML SYR IV NR (17:18)
[2019-10-14 21:38] LABS: BG BASE EXCESS -5.2 mmol/L (-2.0-2.0); BG CARBOXYHEMOGLOBIN 0.3 % (0.5-1.5); BG DEOXYHEMOGLOBIN 5.6 % (0.0-5.0); BG FRACTION INSPIRED OXYGEN 100; BG HCO3 ACT 23.8 mmol/L (22.0-26.0); BG METHEMOGLOBIN 0.4 % (0.0-1.5); BG OXYGEN SATURATION 94.4 % (92.0-98.5); BG OXYHEMOGLOBIN 93.7 % (94.0-97.0); BG PCO2 62.3 mmHg (35.0-45.0); BG PO2 82.8 mmHg (75.0-100.0); BG SAMPLE SITE RIGHT RADIAL; BG TIDAL VOLUME(mL) 550 mL; BG TOTAL HEMOGLOBIN 13.3 g/dL (12.0-18.0); BG VENT MODE PRVC; BG VENT RATE 26 set
[2019-10-15] VITALS (53 sets, daily range): BP systolic 84–139; BP diastolic 43–72
[2019-10-15] MEDS: METOCLOPRAMIDE HCL 10MG/2ML VIAL IV SCH ×2 (00:40→05:30)
[2019-10-15] MEDS ORDERED: FENTANYL CITRATE/PF 1,000 MCG in SODIUM CHLORIDE 0.9% 80 ML IV PRN (05:45)
[2019-10-15] MEDS: SODIUM BICARBONATE 100 MEQ in DEXT 5%/0.9% NACL 1,000 ML IV SCH (06:05)
[2019-10-15 07:42] LABS: HEMATOCRIT. 32.6 % (42.0-52.0); HEMOGLOBIN. 11.1 g/dL (14.0-18.0); MEAN CORPUSCULAR HEMOGLOBIN 30.4 pg (28.0-32.0); MEAN CORPUSCULAR VOLUME 89.4 fL (80.0-94.0); MEAN PLATELET VOLUME 8.2 fl (7.4-10.4); PLATELET 265 x1000/uL (130-400); RED BLOOD CELL COUNT 3.65 mill/uL (4.7-6.1); RED CELL DISTRIBUTION WIDTH 14.6 % (11.6-14.6)
[2019-10-15] MEDS ORDERED: DEXTROSE 50% WATER 50ML SYRINGE IV SCH (08:30)
[2019-10-15] MEDS ORDERED: SODIUM BICARBONATE 8.4% 1 MEQ/ML 50ML SYR IV SCH (08:30)
[2019-10-15] MEDS ORDERED: INSULIN REGULAR (HUMULIN R) 300UNITS/3ML IV SCH (08:30)
[2019-10-15] MEDS: MEROPENEM 500 MG in SODIUM CHLORIDE 0.9% 50 ML IV SCH (08:46)
[2019-10-15] MEDS: METHYLPREDNISOLONE SOD SUCC 40 MG/ML VIAL IV SCH (08:46)
[2019-10-15] MEDS: THIAMINE HCL 100MG TABLET PO SCH (08:46)
[2019-10-15] MEDS: FAMOTIDINE 20MG/2ML VIAL IV SCH (08:46)
[2019-10-15] MEDS: ZINC SULFATE 220 MG ( 50 ) CAPSULE PO SCH (08:46)
[2019-10-15] MEDS: ENOXAPARIN 40MG/0.4ML SYR SUBCUT SCH (08:46)
[2019-10-15 09:44] LABS: BG CARBOXYHEMOGLOBIN 0.1 % (0.5-1.5); BG DEOXYHEMOGLOBIN 3.3 % (0.0-5.0); BG FRACTION INSPIRED OXYGEN 100; BG HCO3 ACT 23.6 mmol/L (22.0-26.0); BG METHEMOGLOBIN 0.4 % (0.0-1.5); BG OXYGEN SATURATION 96.7 % (92.0-98.5); BG OXYHEMOGLOBIN 96.2 % (94.0-97.0); BG PCO2 61.5 mmHg (35.0-45.0); BG PH 7.202 (7.350-7.450); BG PO2 103.4 mmHg (75.0-100.0); BG SAMPLE SITE RIGHT RADIAL; BG TIDAL VOLUME(mL) 550 mL; BG TOTAL HEMOGLOBIN 11.6 g/dL (12.0-18.0); BG VENT MODE VENT - A/C PRVC; BG VENT RATE 26 set
[2019-10-15] MEDS ORDERED: CALCIUM CHLORIDE 1,000 MG in DEXT 5% WATER 90 ML IV SCH (10:00)
[2019-10-15] MEDS ORDERED: MORPHINE SULFATE 250 MG in DEXT 5% WATER 240 ML IV PRN (10:30)
[2019-10-15 11:11] LABS: PLATELET ESTIMATE NORMAL
== END 2019-10-15 14:30 | disposition expired | DRG 720 ==
LOC: ER 13:06 → EDBEDREQSVC 15:27 → EDBEDREQ 15:29 → EDBEDREQTM 15:29 → CANRESERV 22:19 → ENRESERV 22:19 → MICUSO 10-04 15:27 → EEVIPCON 10-04 15:27 → ENRESERV 10-04 20:10
PROVIDERS: ADMIT Hospitalist; ATTEND Hospitalist
PROC: 5A1955Z Respiratory Ventilation, Greater than 96 Consecutive Hours (ICD-10-PCS; principal; 2019-10-03)
PROC: 0BH17EZ Insertion of Endotracheal Airway into Trachea, Via Natural or Artificial Opening (ICD-10-PCS; 2019-10-03)
PROC: 06HY33Z Insertion of Infusion Device into Lower Vein, Percutaneous Approach (ICD-10-PCS; 2019-10-03)
PROC: 02HV33Z Insertion of Infusion Device into Superior Vena Cava, Percutaneous Approach (ICD-10-PCS; 2019-10-08)
PROC: B548ZZA Ultrasonography of Superior Vena Cava, Guidance (ICD-10-PCS; 2019-10-08)
DX: A41.89 Other specified sepsis (principal); U07.1 COVID-19; J96.01 Acute respiratory failure with hypoxia; N17.0 Acute kidney failure with tubular necrosis; E43 Unspecified severe protein-calorie malnutrition; E87.4 Mixed disorder of acid-base balance; E22.2 Syndrome of inappropriate secretion of antidiuretic hormone; R65.21 Severe sepsis with septic shock; I11.0 Hypertensive heart disease with heart failure; I50.9 Heart failure, unspecified; J12.89 Other viral pneumonia; E87.6 Hypokalemia; R79.89 Other specified abnormal findings of blood chemistry; R34 Anuria and oliguria; D72.810 Lymphocytopenia; Z66 Do not resuscitate; E87.5 Hyperkalemia; Z90.2 Acquired absence of lung [part of]; Z68.34 Body mass index [BMI] 34.0-34.9, adult; Z78.1 Physical restraint status; Z85.118 Personal history of other malignant neoplasm of bronchus and lung; Z22.322 Carrier or suspected carrier of Methicillin resistant Staphylococcus aureus
CPT/HCPCS: 31500; 36415; 36556; 36600; 71045; 76937; 80048; 80053; 80061; 80202; 81003; 82375; 82728; 82805; 82962; 83605; 83615; 83735; 83880; 84100; 84145; 84295; 84478; 84484; 85025; 85379; 86140; 87635; 87804; 93005; 94002; 94003; 94640; 99291; C1725; J0330; J0456; J0610; J0696; J1650; J1815; J2060; J2185; J2250; J2270; J2370; J2704; J2765; J2920; J2930; J3010; J3370; J3480; J3490; J7030; J7042; J7050; J7060; J7070